=== PATIENT | female | born 1975 | race African-American/Black ===

== ENCOUNTER 2016-12-25 09:25 | Emergency (ER) | payer OTHER ==
[~2016-12-25] VITALS: Ht 160 cm; Wt 78.0 kg
[~2016-12-25 09:25] MED LIST: AUGM875T PO
[2016-12-25 09:48] VITALS: BP 141/89; PULSE 111; RESP 22; TEMP 98.6; O2SAT 97
[2016-12-25] MEDS ORDERED: SODIUM CHLOR 0.9% 1000 ML INJ 1,000 ML IV SCH (10:02)
[2016-12-25] MEDS ORDERED: SODIUM CHLOR 0.9% 1000 ML INJ 1,000 ML IV ONE (10:15)
[2016-12-25] MEDS ORDERED: FAMOTIDINE 20 MG/2 ML VIAL IV PUSH ONE (10:15)
[2016-12-25] MEDS ORDERED: ONDANSETRON HCL 4 MG/2 ML VIAL IVP ONE (10:15)
[2016-12-25] MEDS ORDERED: SODIUM CHLORIDE 0.9% FLUSH 10 ML FLUSH IV FLUSH PRN (10:15)
[2016-12-25 10:18] LABS: AUTOMATED NEUTROPHIL # 8.9 TH/MM3 (1.8-7.7); BASOPHIL # 0.1 TH/MM3 (0-0.2); BASOPHIL % 0.7 % (0.0-2.0); EOSINOPHIL # 0.4 TH/MM3 (0-0.4); HEMATOCRIT 37.3 % (35.0-46.0); HEMO FLAGS DIFF FINAL; LYMPH % 15.6 % (9.0-44.0); MEAN CELL VOLUME 83.4 FL (80.0-100.0); MEAN CORPUSCULAR HEMOGLOBIN 28.1 PG (27.0-34.0); MEAN CORPUSCULAR HGB CONC 33.7 % (32.0-36.0); MONO % 13.1 % (0.0-8.0); NEUT % 67.6 % (16.0-70.0); PLATELET COUNT 416 TH/MM3 (150-450); RED BLOOD COUNT 4.47 MIL/MM3 (4.00-5.30); RED CELL DISTRIBUTION WIDTH 18.5 % (11.6-17.2); WHITE BLOOD COUNT 13.1 TH/MM3 (4.0-11.0)
[2016-12-25 10:22] VITALS: PULSE 90; O2SAT 97
[2016-12-25 10:28] LABS: APTT (PATIENT) 27.1 SEC (24.3-30.1); INTERNATIONAL NORMALIZED RATIO 1.2 RATIO
[2016-12-25 10:34] LABS: BACTERIA, URINE OCC /hpf; BLOOD, URINE NEG (NEG); COMMENT (UR) CULT NOT INDICATED; CULTURE IF INDICATED CULT NOT INDICATED; GLUCOSE,URINE NEG (NEG); HYALINE CAST, URINE 1 /lpf (RARE); KETONE, URINE NEG (NEG); MUCUS URINE FEW /lpf (OCC); NITRITE,URINE NEG (NEG); SQUAMOUS EPITHELIAL CELL URINE 1 /hpf (0-5); URINE COLOR YELLOW (YELLW/STRAW)
--- NOTE | 2016-12-25 10:36 | RADRPT ---
EXAM DATE/TIME: 12/25/2016 10:21 [facility] COMPARISON: No previous studies available for comparison. INDICATIONS : Chest discomfort. MEDICAL HISTORY : None. SURGICAL HISTORY : None. ENCOUNTER: Initial ACUITY: 1 day PAIN SCORE: 4/10 LOCATION: Bilateral chest FINDINGS: A single view of the chest demonstrates the lungs to be symmetrically aerated without evidence of mas s, infiltrate or effusion. The cardiomediastinal contours are unremarkable. Osseous structures are intact. CONCLUSION: 1. Negative portable chest. Carlos Alberto Caceres MD on December 25, 2016 at 10:34 Board Certified Radiologist. This report was verified electronically.
[2016-12-25 10:49] LABS: ALT (GPT) 37 U/L (10-53); ANION GAP 7 MEQ/L (5-15); AST (GOT) 62 U/L (15-37); BICARBONATE 22.8 MEQ/L (21.0-32.0); BLOOD UREA NITROGEN 8 MG/DL (7-18); CHLORIDE 109 MEQ/L (98-107); GLOMERULAR FILTRATION RATE 123 ML/MIN (>89); POTASSIUM 4.2 MEQ/L (3.5-5.1); SODIUM (NA) 139 MEQ/L (136-145)
[2016-12-25 10:51] LABS: ALKALINE PHOSPHATASE 153 U/L (45-117); TOTAL BILIRUBIN ADULT 0.4 MG/DL (0.2-1.0)
--- NOTE | 2016-12-25 11:03 | PD ---
HPI Chief Complaint: Abdominal Pain Time Seen by Provider: 09:53 Travel History International Travel<30 days: No Contact w/Intl Traveler<30days: No Traveled to known affect area: No History of Present Illness HPI Patient is a 41-year-old female who presents to emergency room with complaints of abdominal pain, nausea vomiting diarrhea. Patient reports that her symptoms began this morning around 7 AM, reports that she woke up this morning and began to have bilateral flank pain, she felt nauseous and has been vomiting and having diarrhea since 7 AM this morning. Reports that she has never had symptoms like this in the past, denies being around any sick contacts. Denies any recent travels. Patient denies any history of kidney stones, denies hematuria, dysuria, urinary urgency or frequency. Patient also denies any fevers or chills. Of note, patient reports that for the past month, she has been dealing with a sinus infection. Patient reports that she has had a postnasal drip, reports that these that this postnasal drip is going down to her abdomen. Reports that she has not been on any antibiotics for this and did make an appointment with her PCP on the . Reports that because of this nausea, vomiting, and diarrhea, she decided to come to the emergency room for evaluation. PFSH Past Medical History Blood Disorders: Yes Bipolar Disorder: Yes Anxiety: Yes Depression: Yes Diminished Hearing: No Gastrointestinal Disorders: No Musculoskeletal: Yes (BACK PAIN) Tetanus Vaccination: > 5 Years Influenza Vaccination: No ?: Not LMP: 2 yrs ago : 5 Para: 4 Miscarriage: 1 Tubal Ligation: Yes Past Surgical History Section: Yes Cholecystectomy: Yes Other Surgery: No Social History Alcohol Use: Yes (4 pk BEER DAILY(last yesterday)) Tobacco Use: Yes (PK A DAY) Substance Use: No Allergies-Medications (Allergen,Severity, Reaction): Coded Allergies: No Known Allergies (Verified , 12/25/16) Reported Meds & Prescriptions Reported Meds & Active Scripts Active Review of Systems General / Constitutional: No: Fever Eyes: No: Visual changes HENT: No: Headaches Cardiovascular: No: Chest Pain or Discomfort Respiratory: No: Cough, Shortness of Breath Gastrointestinal: Positive: Nausea, Vomiting, Diarrhea, Abdominal Pain Genitourinary: Positive: Flank Pain, No: Urgency, Frequency, Dysuria Musculoskeletal: No: Pain Skin: No Rash Neurologic: No: Weakness Psychiatric: No: Depression Endocrine: No: Polydipsia Hematologic/Lymphatic: No: Easy Bruising Physical Exam Narrative GENERAL: Moderate distress SKIN: Focused skin assessment warm/dry. HEAD: Atraumatic. Normocephalic. EYES: Pupils equal and round. No scleral icterus. No injection or drainage. ENT: No nasal bleeding or discharge. Mucous membranes pink and moist. NECK: Trachea midline. No JVD. CARDIOVASCULAR: Tachycardic. No murmur appreciated. RESPIRATORY: No accessory muscle use. Clear to auscultation. Breath sounds equal bilaterally. GASTROINTESTINAL: Abdomen soft, non-tender, nondistended. Hepatic and splenic margins not palpable. Patient with bilateral flank pain MUSCULOSKELETAL: No obvious deformities. No clubbing. No cyanosis. No edema. NEUROLOGICAL: Awake and alert. No obvious cranial nerve deficits. Motor grossly within normal limits. Normal speech. PSYCHIATRIC: Appropriate mood and affect; insight and judgment normal. Data Data Last Documented VS Vital Signs Date Time Temp Pulse Resp B/P Pulse Ox O2 Delivery O2 Flow Rate FiO2 12/25/16 11:54 89 18 137/85 98 Room Air 12/25/16 09:48 98.6 Orders Complete Blood Count With Diff (12/25/16 10:02) Comprehensive Metabolic Panel (12/25/16 10:02) Lipase (12/25/16 10:02) Prothrombin Time / Inr (Pt) (12/25/16 10:02) Act Partial Throm Time (Ptt) (12/25/16 10:02) Urinalysis - C+S If Indicated (12/25/16 10:02) Ct Abd/Pel W/O Iv Contrast (12/25/16 10:02) Iv Access Insert/Monitor (12/25/16 10:02) Ecg Monitoring (12/25/16 10:02) Oximetry (12/25/16 10:02) NPO (12/25/16 10:02) Ondansetron Inj (Zofran Inj) (12/25/16 10:15) Sodium Chlor 0.9% 1000 Ml Inj (Ns 1000 M (12/25/16 10:02) Sodium Chloride 0.9% Flush (Ns Flush) (12/25/16 10:15) Electrocardiogram (12/25/16 10:02) Chest, Single Ap (12/25/16 10:02) Famotidine Inj (Pepcid Inj) (12/25/16 10:15) Ed Urine Pregnancytest Poc (12/25/16 10:02) Sodium Chlor 0.9% 1000 Ml Inj (Ns 1000 M (12/25/16 10:15) Beta Hcg (Quant/Titer) (12/25/16 10:21) Labs Laboratory Tests Test 12/25/16 12/25/16 10:05 10:10 White Blood Count 13.1 TH/MM3 Red Blood Count 4.47 MIL/MM3 Hemoglobin 12.6 GM/DL Hematocrit 37.3 % Mean Corpuscular Volume 83.4 FL Mean Corpuscular Hemoglobin 28.1 PG Mean Corpuscular Hemoglobin 33.7 % Concent Red Cell Distribution Width 18.5 % Platelet Count 416 TH/MM3 Mean Platelet Volume 8.6 FL Neutrophils (%) (Auto) 67.6 % Lymphocytes (%) (Auto) 15.6 % Monocytes (%) (Auto) 13.1 % Eosinophils (%) (Auto) 3.0 % Basophils (%) (Auto) 0.7 % Neutrophils # (Auto) 8.9 TH/MM3 Lymphocytes # (Auto) 2.0 TH/MM3 Monocytes # (Auto) 1.7 TH/MM3 Eosinophils # (Auto) 0.4 TH/MM3 Basophils # (Auto) 0.1 TH/MM3 CBC Comment DIFF FINAL Differential Comment Prothrombin Time 13.0 SEC Prothromb Time International 1.2 RATIO Ratio Activated Partial 27.1 SEC Thromboplast Time Sodium Level 139 MEQ/L Potassium Level 4.2 MEQ/L Chloride Level 109 MEQ/L Carbon Dioxide Level 22.8 MEQ/L Anion Gap 7 MEQ/L Blood Urea Nitrogen 8 MG/DL Creatinine 0.64 MG/DL Estimat Glomerular Filtration 123 ML/MIN Rate Random Glucose 107 MG/DL Calcium Level 9.2 MG/DL Total Bilirubin 0.4 MG/DL Aspartate Amino Transf 62 U/L (AST/SGOT) Alanine Aminotransferase 37 U/L (ALT/SGPT) Alkaline Phosphatase 153 U/L Total Protein 8.9 GM/DL Albumin 3.6 GM/DL Lipase 282 U/L Human Chorionic Gonadotropin, 2 MIU/ML Quant Urine Color YELLOW Urine Turbidity CLEAR Urine pH 5.0 Urine Specific [place] 1.013 Urine Protein TRACE mg/dL Urine Glucose (UA) NEG mg/dL Urine Ketones NEG mg/dL Urine Occult Blood NEG Urine Nitrite NEG Urine Bilirubin NEG Urine Urobilinogen LESS THAN 2.0 MG/DL Urine Leukocyte Esterase NEG Urine RBC LESS THAN 1 /hpf Urine WBC 1 /hpf Urine Squamous Epithelial 1 /hpf Cells Urine Bacteria OCC /hpf Urine Hyaline Casts 1 /lpf Urine Mucus FEW /lpf Microscopic Urinalysis Comment CULT NOT INDICATED MDM Medical Decision Making Medical Screen Exam Complete: Yes Emergency Medical Condition: Yes Interpretation(s) EKG at 1026 shows normal sinus rhythm at 87 bpm, QT/QTc 359/403, no acute ST or T-wave changes Vital Signs Date Time Temp Pulse Resp B/P Pulse Ox O2 Delivery O2 Flow Rate FiO2 12/25/16 10:22 90 97 Room Air 12/25/16 09:48 98.6 111 22 141/89 97 Room Air Differential Diagnosis Differential for her symptoms could include pyelonephritis, kidney stones, gastroenteritis, gastritis, electrolyte abnormality, ACS though unlikely, alcohol withdrawl Narrative Course 41-year-old female who presents to emergency room with complaints of abdominal pain with nausea vomiting and diarrhea which began around 7 AM this morning. On exam, patient appears uncomfortable. Patient does have bilateral flank tenderness as well as diffuse abdominal tenderness. Plan to obtain IV, labs as well as CT of the abdomen and pelvis ordered to evaluate for possible kidney stones versus pyelonephritis. UA ordered to evaluate for possible infection. IVF as well as antiemetics ordered On review of pt's past records, it appears that patient does have a history of alcoholism, patient denies drinking and reports that she is sober - patient could be going through alcohol withdrawl as well, plan to monitor patient on cardiac technologist Upon reevaluation of patient, patient now admits that she is an alcoholic, she did have her last drink last night. Patient reports that she does not feel as if she is going through alcohol withdrawal, patient's vital signs are stable this time, patient with no tachycardia. Patient reports that she is feeling much better, reports that she isn't feel nauseous anymore. Vital Signs Date Time Temp Pulse Resp B/P Pulse Ox O2 Delivery O2 Flow Rate FiO2 12/25/16 11:54 89 18 137/85 98 Room Air 12/25/16 10:22 90 97 Room Air 12/25/16 09:48 98.6 111 22 141/89 97 Room Air Laboratory Tests Test 12/25/16 12/25/16 10:05 10:10 White Blood Count 13.1 TH/MM3 (4.0-11.0) Red Blood Count 4.47 MIL/MM3 (4.00-5.30) Hemoglobin 12.6 GM/DL (11.6-15.3) Hematocrit 37.3 % (35.0-46.0) Mean Corpuscular Volume 83.4 FL (80.0-100.0) Mean Corpuscular Hemoglobin 28.1 PG (27.0-34.0) Mean Corpuscular Hemoglobin 33.7 % Concent (32.0-36.0) Red Cell Distribution Width 18.5 % (11.6-17.2) Platelet Count 416 TH/MM3 (150-450) Mean Platelet Volume 8.6 FL (7.0-11.0) Neutrophils (%) (Auto) 67.6 % (16.0-70.0) Lymphocytes (%) (Auto) 15.6 % (9.0-44.0) Monocytes (%) (Auto) 13.1 % (0.0-8.0) Eosinophils (%) (Auto) 3.0 % (0.0-4.0) Basophils (%) (Auto) 0.7 % (0.0-2.0) Neutrophils # (Auto) 8.9 TH/MM3 (1.8-7.7) Lymphocytes # (Auto) 2.0 TH/MM3 (1.0-4.8) Monocytes # (Auto) 1.7 TH/MM3 (0-0.9) Eosinophils # (Auto) 0.4 TH/MM3 (0-0.4) Basophils # (Auto) 0.1 TH/MM3 (0-0.2) CBC Comment DIFF FINAL Differential Comment Prothrombin Time 13.0 SEC (9.8-11.6) Prothromb Time International 1.2 RATIO Ratio Activated Partial 27.1 SEC Thromboplast Time (24.3-30.1) Sodium Level 139 MEQ/L (136-145) Potassium Level 4.2 MEQ/L (3.5-5.1) Chloride Level 109 MEQ/L (98-107) Carbon Dioxide Level 22.8 MEQ/L (21.0-32.0) Anion Gap 7 MEQ/L (5-15) Blood Urea Nitrogen 8 MG/DL (7-18) Creatinine 0.64 MG/DL (0.50-1.00) Estimat Glomerular Filtration 123 ML/MIN Rate (>89) Random Glucose 107 MG/DL (74-106) Calcium Level 9.2 MG/DL (8.5-10.1) Total Bilirubin 0.4 MG/DL (0.2-1.0) Aspartate Amino Transf 62 U/L (15-37) (AST/SGOT) Alanine Aminotransferase 37 U/L (10-53) (ALT/SGPT) Alkaline Phosphatase 153 U/L (45-117) Total Protein 8.9 GM/DL (6.4-8.2) Albumin 3.6 GM/DL (3.4-5.0) Lipase 282 U/L (73-393) Human Chorionic Gonadotropin, 2 MIU/ML (0-5) Quant Urine Color YELLOW (YELLW/STRAW) Urine Turbidity CLEAR (CLEAR) Urine pH 5.0 (5.0-8.5) Urine Specific [place] 1.013 (1.002-1.035) Urine Protein TRACE mg/dL (NEG-TRACE) Urine Glucose (UA) NEG mg/dL (NEG) Urine Ketones NEG mg/dL (NEG) Urine Occult Blood NEG (NEG) Urine Nitrite NEG (NEG) Urine Bilirubin NEG (NEG) Urine Urobilinogen LESS THAN 2.0 MG/DL (LESS THAN 2.0) Urine Leukocyte Esterase NEG (NEG) Urine RBC LESS THAN 1 /hpf (0-3) Urine WBC 1 /hpf (0-5) Urine Squamous Epithelial 1 /hpf (0-5) Cells Urine Bacteria OCC /hpf (NONE) Urine Hyaline Casts 1 /lpf (RARE) Urine Mucus FEW /lpf (OCC) Microscopic Urinalysis Comment CULT NOT INDICATED Last Impressions Chest X-Ray 12/25/16 1002 Signed Impressions: Service Date/Time: December 10:21 - CONCLUSION: 1. Negative portable chest. Carlos Alberto Caceres MD Abdomen/Pelvis CT 12/25/16 1002 Signed Impressions: Service Date/Time: December 12:47 - CONCLUSION: 1. No findings to explain patient's abdominal pain. 2. Normal appearing appendix. 3. Status post cholecystectomy. Carlos Alberto Caceres MD Patient reevaluated, patient feeling much better at this time. Abdomen is soft , nontender, nondistended, no peritoneal signs. All labs reviewed, x-ray of the chest shows no obvious disease, CT of the abdomen and pelvis shows no findings explain patient's abdominal pain, no appearing appendix. Patient is hydrated, patient with most likely gastroenteritis. Plan to discharge patient home with outpatient follow-up. Signs and symptoms of when to return to the emergency room was reviewed patient in detail. Diagnosis Primary Impression: Abdominal pain Additional Impression: Nausea vomiting and diarrhea Patient Instructions: General Instructions Additional Instructions: Please follow up with your primary care doctor Return to ER if symptoms worsen or progress Return to ER as needed Med/Other Pt SpecificInfo: Prescription(s) given Disposition: 01 DISCHARGE HOME Condition: Stable Bree Zendejas DO Dec 25, 2016 11:03
[2016-12-25 11:54] VITALS: BP 137/85; PULSE 89; RESP 18; O2SAT 98
[2016-12-25 12:17] LABS: BETA HCG QUANT 2 MIU/ML (0-5)
--- NOTE | 2016-12-25 13:07 | RADRPT ---
EXAM DATE/TIME: 12/25/2016 12:47 [facility] COMPARISON: CT ABDOMEN & PELVIS W/O CONTRAST, May 25, 2015, 9:17. INDICATIONS : Mid abdominal pain with nausea and vomiting starting this morning. ORAL CONTRAST: No oral contrast ingested. RADIATION DOSE: 12.49 CTDIvol (mGy) MEDICAL HISTORY : None SURGICAL HISTORY : Cholecystectomy. Tubal ligation. ENCOUNTER: Initial ACUITY: 1 day PAIN SCALE: 10/10 LOCATION: Bilateral mid abdomen TECHNIQUE: Volumetric scanning of the abdomen and pelvis was performed. Using automated exposure control and ad justment of the mA and/or kV according to patient size, radiation dose was kept as low as reasonably achievable to obtain optimal diagnostic quality images. FINDINGS: LOWER LUNGS: The visualized lower lungs are clear. LIVER: Improved diffuse decreased hepatic attenuation without evidence for volume loss, intrahepatic ductal dilatation, or focal mass. SPLEEN: Normal size without lesion. PANCREAS: Within normal limits. GALLBLADDER: Surgically absent. No significant extra hepatic ductal dilatation. KIDNEYS: Normal in size and shape. There is no mass, stone, or hydronephrosis. ADRENAL GLANDS: Within normal limits. VASCULAR: There is no aortic aneurysm. BOWEL/MESENTERY: The stomach, small bowel, and colon demonstrate no acute abnormality. The appendix appears unremarka ble. There is no free intraperitoneal air or fluid. ABDOMINAL WALL: Within normal limits. RETROPERITONEUM: There is no lymphadenopathy. BLADDER: No wall thickening or mass. REPRODUCTIVE: Within normal limits. INGUINAL: There is no lymphadenopathy or hernia. MUSCULOSKELETAL: Within normal limits for patient age. CONCLUSION: 1. No findings to explain patient's abdominal pain. 2. Normal appearing appendix. 3. Status post cholecystectomy. Carlos Alberto Caceres MD on December 25, 2016 at 12:56 Board Certified Radiologist. This report was verified electronically.
--- NOTE | 2016-12-26 12:12 | EKG ---
Date Performed: 12/25/2016 Time Performed: 10:26:12 PTAGE: 41 years EKG: Sinus rhythm POSSIBLE LEFT ATRIAL ENLARGEMENT POSSIBLE RIGHT VENTRICULAR CONDUCTION DELAY BORDERLINE ECG NO PREVIOUS TRACING DOCTOR: Gregorio Odonnell Interpretating Date/Time 12/26/2016 12:08:41
[2017-01-06] MEDS ORDERED: AUGM875T3 PO (10:21)
[2017-01-06] MEDS ORDERED: LISI-519 PO (10:27)
[2017-01-07] MEDS ORDERED: AMOX875T PO (10:11)
== END 2016-12-25 14:20 | disposition home or self-care (01) ==
LOC: NEPC 09:25
DX: R10.84 Generalized abdominal pain (principal); R11.2 Nausea with vomiting, unspecified; R19.7 Diarrhea, unspecified; R09.82 Postnasal drip; R94.31 Abnormal electrocardiogram [ECG] [EKG]; F17.200 Nicotine dependence, unspecified, uncomplicated; Z86.2 Personal history of diseases of the blood and blood-forming organs and certain disorders involving the immune mechanism; Z86.59 Personal history of other mental and behavioral disorders; Z87.39 Personal history of other diseases of the musculoskeletal system and connective tissue
CPT/HCPCS: 71010; 74176; 80053; 81001; 83690; 84702; 85025; 85610; 85730; 93005; 96361; 96374; 96375; 99285; J2405; J7030